=== PATIENT | male | born 1995 | race Caucasian/White ===

== ENCOUNTER 2018-08-13 10:03 | Emergency (ER) | payer OTHER ==
[2018-08-13] MEDS: ONDANSETRON (ODT) 4 MG TAB ODT (11:55)
== END 2018-08-13 11:57 | disposition home or self-care (01) ==
LOC: FTE 10:03
DX: K52.9 Noninfective gastroenteritis and colitis, unspecified (principal)
CPT/HCPCS: 99283; Z7502